=== PATIENT | female | born 1965 | race Hispanic/Latino ===

== ENCOUNTER 2022-12-13 15:47 | Outpatient (CLI) | payer BC, SELFPAY ==
--- NOTE | ~2022-12-13 | US_ITS ---
EXAMINATION: US thyroid DATE: 12/13/2022 17:37 INDICATION: Disorder of thyroid gland. TECHNIQUE: Multiple ultrasound images of the thyroid were obtained. COMPARISON: None. FINDINGS: The right thyroid lobe is not visualized and reportedly surgically absent. No abnormal residual soft tissue at the right thyroidectomy bed. The left thyroid lobe measures 4.3 x 1.5 x 2.1 cm. Heterogeneo us echogenicity and coarsened echotexture in the left thyroid lobe. 8 mm wider than tall solid isoech oic nodule with ill-defined margins at the inferior left thyroid lobe (TI-RADS 3, mildly suspicious , FNA if >=2.5 cm, annual followup is >=1.5 cm). IMPRESSION: 1. 8 mm TI RADS 3 left thyroid nodule which remains below size threshold for either biopsy or follow- up. 2. Status post right thyroidectomy. Reviewed, dictated and finalized at location A. E ATTENDANT IMPRESSION: 1. 8 mm TI RADS 3 left thyroid nodule which remains below size threshold for ei ther biopsy or follow-up. 2. Status post right thyroidectomy.
== END 2022-12-13 15:48 | disposition home or self-care (01) ==
LOC: ANHIMG 15:55
PROVIDERS: PCP Physician Assistant; Visit Provider Physician Assistant
DX: E04.1 Nontoxic single thyroid nodule (principal); E89.0 Postprocedural hypothyroidism
CPT/HCPCS: 76536

== ENCOUNTER 2023-01-26 12:57 | Outpatient (CLI) | payer BC, SELFPAY ==
--- NOTE | ~2023-01-26 | US_ITS ---
Ultrasound of the neck CLINICAL HISTORY: Papillary thyroid cancer TECHNIQUE: Real-time sonographic imaging of the neck was performed. FINDINGS: There is a 1.5 x 0.8 x 1.5 cm lymph node in the left neck with prominent fatty hilum and th in reniform cortex. There is an additional 0.7 cm lymph node, also with preserved fatty hilum in the left neck. Several additional small morphologically normal lymph nodes are noted bilaterally. No defi nite pathologic-appearing lymph nodes or other soft tissue masses are identified. No fluid collection evident. IMPRESSION: No definite pathologic lymphadenopathy or other pathologic-appearing soft tissue mass identified in t he visualized neck. Mildly prominent lymph nodes maintain fatty kenneth, and are probably within normal limits. Reviewed, dictated and finalized at location . IMPRESSION: No definite pathologic lymphadenopathy or other pathologic-appearing soft tissu e mass identified in the visualized neck. Mildly prominent lymph nodes maintain fatty kenneth, and are probably within normal limits.
== END 2023-01-26 12:58 | disposition home or self-care (01) ==
PROVIDERS: PCP Physician Assistant; Visit Provider Internal Medicine
DX: C73 Malignant neoplasm of thyroid gland (principal)
CPT/HCPCS: 76536

== ENCOUNTER 2023-03-02 15:53 | Outpatient (CLI) | payer BC, SELFPAY ==
--- NOTE | ~2023-03-02 | MM_ITS ---
EXAMINATION: MM screening dee BI w demarco HISTORY: Screening mammogram TECHNIQUE: Craniocaudal and mediolateral oblique 3-D tomosynthesis images were obtained and synthetic 2-D images were generated. CAD analysis was submitted and interpreted. COMPARISON: No prior mammogram is available for comparison at this institution. BREAST PARENCHYMAL COMPOSITION: There are scattered areas of fibroglandular density. FINDINGS: Approximately 4 mm and 3 mm asymmetric opacity is again noted in the outer right breast on CC projection. Diagnostic right mammogram and right breast ultrasound examination are recommended. Otherwise no suspicious mass, architectural distortion, malignant calcification, skin thickening or r etraction of either breast is detected. IMPRESSION: 1. Asymmetric densities, outer right breast 2. Diagnostic right mammogram and right breast ultrasound examination are recommended BI-RADS Category 0: Incomplete: Needs additional imaging evaluation. Reviewed, dictated and finalized at location A. IMPRESSION: 1. Asymmetric densities, outer right breast 2. Diagnostic right mammogram and right breast ultrasound examination are recom mended BI-RADS Category 0: Incomplete: Needs additional imaging evaluation.
== END 2023-03-02 15:54 | disposition home or self-care (01) ==
PROVIDERS: PCP Physician Assistant; Visit Provider Physician Assistant
DX: Z12.31 Encounter for screening mammogram for malignant neoplasm of breast (principal); R92.8 Other abnormal and inconclusive findings on diagnostic imaging of breast
CPT/HCPCS: 77063; 77067

== ENCOUNTER 2023-03-30 11:51 | Outpatient (CLI) | payer BC, SELFPAY ==
--- NOTE | ~2023-03-30 | MMUS_ITS ---
EXAMINATION: MM diagnostic dee RT w demarco, US breast RT limited HISTORY: Right breast asymmetry on screening mammogram TECHNIQUE: Additional 3-D tomosynthesis images of the right breast were performed and synthetic 2-D i mages were generated. CAD analysis was submitted and interpreted. High resolution limited right breas t ultrasound was performed. COMPARISON: 03/02/2023, 03/09/2022, 12/21/2019 FINDINGS: MAMMOGRAPHIC FINDINGS: There is a return to baseline fibroglandular appearance with spot compression of the right breast in the area questioned on screening mammogram. ULTRASOUND: There is no evidence of focal abnormal solid or cystic mass in the vicinity of the mammographic findi ng in question. IMPRESSION: 1. No mammographic or sonographic evidence of malignancy. 2. Recommend routine screening mammography in one year. BI-RADS Category 1: Negative Reviewed, dictated and finalized at location A. IMPRESSION: 1. No mammographic or sonographic evidence of malignancy. 2. Recommend routine screening mammography in one year. BI-RADS Category 1: Negative
== END 2023-03-30 11:52 | disposition home or self-care (01) ==
LOC: ANHIMG 11:51
PROVIDERS: PCP Physician Assistant; Visit Provider Physician Assistant
DX: R92.8 Other abnormal and inconclusive findings on diagnostic imaging of breast (principal)
CPT/HCPCS: 76642; 77061; 77065; G0279